=== PATIENT | male | born 1965 | race Caucasian/White ===

== ENCOUNTER 2020-10-03 15:36 | Inpatient (IN) | payer MEDICAID ==
[~2020-10-03] VITALS: Ht 182.9 cm; Wt 118.4 kg
[2020-10-03] VITALS (14 sets, daily range): BP systolic 104–169; BP diastolic 64–99
--- NOTE | ~2020-10-03 | CON ---
[address] [address] CONSULTATION Name: ELISARENETTA JR Room: [address] IN M.R.#: [id number] Admission: 10/03/20 Attend Phys: Markos Smith Discharge: Date of : 63 Report #: [id number] THIS REPORT FOR: cc: Choco Paul John E. DO ~ Choco Dyson MD [facility] DATE OF SERVICE: 10/03/2020 ADDENDUM The patient is a 55-year-old male, who was transferred to [facility] from our office in the context of chest pain that was nitrate responsive in the office and subsequently in the ER with anterolateral ST segment depression. There is a history of remote PCI in 2008 of multivessel nature. He has a number of risk factors for coronary artery disease. In that context, he underwent urgent cardiac catheterization, which revealed subtotal occlusion of the distal circumflex prior to several small marginal branches. He also had sequential 50% proximal and 80-90% followed by 90% mid LAD stenosis. There was modest diffuse right coronary artery disease. In this setting, I performed PCI in the distal circumflex initially, deploying 2 drug-eluting stents in the distal circumflex with 0% residual narrowing and DE 3 flow to the distal vessel. I placed 2 stents at the sites of 80% and 90% mid LAD stenosis with 0 and 10% residual narrowing following stent deployment and DE 3 flow of the distal vessel. The patient did well post-procedurally. He was loaded with dual antiplatelet therapy including aspirin and prasugrel and then transferred to the telemetry unit in stable condition. By: 1908 30Choco Dyson MD, FACC /nt
[2020-10-03] MEDS ORDERED: LISINOPRIL20 MG PO (15:56)
[2020-10-03] MEDS ORDERED: NORCO 10-325 T1 EACH PO (15:56)
[2020-10-03] MEDS ORDERED: ZOLADEX3.6 MG/1 S SUBQ (15:57)
[2020-10-03 15:58] LABS: ABSOLUTE BASOPHILS 0.1 thou/uL (0.0-0.2); ABSOLUTE EOSINOPHILS 0.3 thou/uL (0.0-0.7); ABSOLUTE LYMPHOCYTES 2.9 thou/uL (0.8-5.3); ABSOLUTE MONOCYTES 0.7 thou/uL (0.0-1.2); ABSOLUTE NEUTROPHILS 6.5 thou/uL (1.6-8.1); BASOPHILS 0.6 %; EOSINOPHILS 2.4 %; HEMATOCRIT 42.2 % (42.0-52.0); HEMOGLOBIN 14.6 gm/dL (14.0-18.0); LYMPHOCYTES 28.1 %; MCH 30.5 pg (26.0-34.0); MCHC 34.7 g/dL (28.0-37.0); MCV 87.9 fL (80.0-100.0); MONOCYTES 6.9 %; MPV 7.3 fl. (7.2-11.1); NUCLEATED RBCS 0 /100WBC; PLATELET COUNT* 286 thou/uL (150-400); RDW-CV 13.8 % (10.5-14.5); WBC 10.4 thou/uL (4.0-11.0)
[2020-10-03 16:14] LABS: APTT 24.1 Seconds (25.0-31.3); CALCIUM 9.8 mg/dL (8.5-10.1); CREATININE 1.4 mg/dL (0.6-1.3); POTASSIUM 4.8 mmol/L (3.5-5.1); PROTIME 10.4 Seconds (9.20-11.50)
[2020-10-03 16:22] LABS: CHOLESTEROL 205 mg/dL (<200); HDL CHOLESTEROL 33 mg/dL (>40); TC:HDL 6.2 Ratio (Not establshd); TRIGLYCERIDE 413 mg/dL (<150); VLDL 83 mg/dL (<40)
[2020-10-03 16:28] LABS: ALBUMIN 3.5 g/dL (3.4-5.0); CK-MB MASS 1.2 ng/mL (<0.5-3.6); MAGNESIUM 1.6 mg/dL (1.8-2.4); TOTAL BILIRUBIN 0.2 mg/dL (<0.1-1.0); TOTAL PROTEIN 7.4 g/dL (6.4-8.2)
[2020-10-03 16:35] LABS: SERUM ASSESSMENT Clear
--- NOTE | 2020-10-03 21:15 | NUR ---
NURSING SAFETY EQUIPMENT TESTING SPECIALIST CALLED TO ROOM 212; PT BELLIGERENT, STATING "I AM GOING TO LEAVE WHEN MY 6 HOURS IS UP. THE DOCTOR SAID I WOULD BE FINE"; PT REFUSING TO GIVE UP HIS HOME NORCO; STATING "YOU ARE STEALING IT" NURSE ATTEMPTED TO EXPLAIN THE POLICY TO THE PATIENT, AND INFORMED HIM THAT PTS ARE NOT ALLOWED TO KEEP THEIR MEDICATIONS AT THE BEDSIDE; UNABLE TO REDIRECT, REASSURE; PT SPOKE WITH HIS SPOUSE; PT WAS YELLING AT HIS OVER THE PHONE, DEMANDING HER TO COME PICK HIM UP, AND STATING WE ARE STEALING HIS PILLS; SPOKE WITH ZAHIDA [phone]. SHE REPORTED THAT PATIENT IS BEING EXTREMELY MEAN AND DIFFICULT; REPORTED THAT HE SAID HE HAD SOME ANXIETY; ALSO STRESSED THAT HE NEEDS TO STAY HERE AND IS IN NO CONDITION TO LEAVE; THIS NURSE REASSURED THAT WE WILL CONTACT THE DR REGARDING THE PTS MEDICATION AND NEED TO GET HOME MEDS APPROVED AND ASK FOR ANXIETY MEDICATION.
--- NOTE | 2020-10-03 21:36 | NUR ---
PT CONTINUES TO REFUSE TO LISTEN; PT HAS BEEN DIRECTED TO KEEP HIS R LEG STRAIT; PT WITH COMPLAINTS OF BACK PAIN AND STATED "I CANNOT DO THAT"; NURSE OFFERED TO PLACE PILLOW UNDER BACK AND MAINTAIN R LEG STRAIT; PT REFUSED; WILL TO MONITOR.
[2020-10-04] VITALS: BP 123/82
[2020-10-04 04:00] VITALS: BP 125/72
[2020-10-04 04:27] LABS: HEMATOCRIT 39.5 % (42.0-52.0); HEMOGLOBIN 13.7 gm/dL (14.0-18.0); MCH 29.9 pg (26.0-34.0); MCHC 34.6 g/dL (28.0-37.0); MCV 86.6 fL (80.0-100.0); MPV 7.6 fl. (7.2-11.1); RBC 4.56 mil/uL (4.50-6.00); RDW-CV 13.4 % (10.5-14.5); WBC 7.6 thou/uL (4.0-11.0)
[2020-10-04 05:04] LABS: ALBUMIN 3.3 g/dL (3.4-5.0); CALCIUM 8.9 mg/dL (8.5-10.1); CREATININE 0.9 mg/dL (0.6-1.3); TOTAL BILIRUBIN 0.3 mg/dL (<0.1-1.0); TOTAL PROTEIN 6.6 g/dL (6.4-8.2)
[2020-10-04 05:09] LABS: POTASSIUM 3.8 mmol/L (3.5-5.1)
--- NOTE | 2020-10-04 05:36 | NUR ---
RECEIVED REPORT FROM DIRECTOR OF GUIDANCE IN [employer] RN. PT TRANSFERRED TO 212. PT A&OX4. VSS. STRIPE MARKER IN PLACE. ADMISSION HISTORY & PHYSICAL ASSESSMENT COMPLETED AND CHARTED. PT ON RA. PT TRACING SR/PVC ON TELE. POST CATH SITE TO RIGHT GROIN WITH MINIMAL DRIED BLOOD. NO TENDERNESS NOTED. BRUISING NOTED. PT COMPLAINED OF BACK PAIN-MED GIVEN PER MAR. PT CLAIMED THAT HE USUALLY TAKES NORCO 10/325 MG AT HOME. OBSERVED HOME MEDICATION (NORCO & ASPIRIN) AT AND TRIED TO EDUCATE PT REGARDING MEDICATION PROTOCOL BUT PT STILL REFUSED TO GIVE UP MEDICATION ESPECIALLY NORCO AND TELLING US THAT WE ARE STEALING IT. PT WANTS TO GO HOME AFTER 6 HOURS POST PROCEDURE SO HE CAN HAVE HIS PAIN PILL. PT STATED HE DOES NOT TRUST OUR BRAND OF NORCO AND WANTS HIS OWN PAIN PILL. CALLED DOCTOR OF PODIATRIC MEDICINE. HARRIS PAZ TALKED TO PT & . PAGED PROVIDER CATTLE DIPPER WITH NEW ORDERS. PT WONT KEEP HIS RIGHT LEG STRAIGHT TOO.
[2020-10-04 07:30] VITALS: BP 143/81
[2020-10-04] MEDS ORDERED: EFFIENT10 MG PO (08:38)
[2020-10-04] MEDS ORDERED: ASPIR 8181 MG PO (08:38)
[2020-10-04] MEDS ORDERED: LIPITOR 40 MG T40 M1 PO (08:38)
[2020-10-04] MEDS ORDERED: NITROGLYCERIN0.4 MG SUBLING (08:38)
--- NOTE | 2020-10-04 09:52 | CARD ---
[address] [address] CARDIAC CATH REPORT Name: RENETTA PÉREZ JR Room: [address] IN [facility]#: [id number] Admission: 10/03/20 Attend Phys: Markos Smith Discharge: Date of : 63 Report #: [id number] THIS REPORT FOR: cc: Choco Paul John E. DO ~ Choco Dyson MD [facility] APPROVED REPORT Study performed: 10/03/2020 16:39:53 Patient Details Patient Status: ED Room #: The patient is a 55 year-old male Event Personnel Choco Dyson Wire Mesh Gate Assembler, Hortencia Hicks RN Record Changer, Summer Flores RN Monitor, Enrique Sánchez Scrub Procedures Performed Art Access - R femoral artery* Left Heart Cath w/or w/o Coronaries LHC BRANDEE Place w/wo Plasty Single LAD BRANDEE Place w/wo Plasty Single CIRC Hemostasis w/ Angioseal Indication Non-STEMI Risk Factors Hypercholesterolemia, Hypertension Previous Procedures/Diagnoses Previous PCI Admission/Lab Medications/Medications given during procedure Aspirin, Aspirin PO 162 mg, Effient PO 60 mg, Angiomax IV 17 ml Procedure Narrative The patient was brought urgently to the Cardiac Catheterization Laboratory and was prepped and draped in a sterile manner. The right femoral was infiltrated with 2% Lidocaine subcutaneous anesthesia. A [place] 6 FR sheath was inserted into the right femoral artery. Coronary angiography was performed using coronary diagnostic catheters. The right coronary system was accessed and [place] [address] CARDIAC CATH REPORT Name: RENETTA PÉREZ JR Room: [address]#: [id number] Admission: 10/03/20 Attend Phys: Markos Smith Discharge: Date of : 63 Report #: [id number] a Diagnostic JR4 catheter. The left coronary system was accessed and visualized with a Diagnostic JL4 catheter. The left ventricle was accessed and visualized with a Diagnostic PIGTAIL catheter. Left ventricular/Aortic Valve gradient assessed via catheter pullback. Closure device was deployed with a 6 Fr Angioseal. The patient tolerated the procedure well and there were no complications associated with the procedure. There was no hematoma. Intraoperative Conscious Sedation Sedation start time: 5:09 PM Case end Time: 6:48 PM Fentanyl 75 mcg Versed 4 mg Fluoro Time: 29.6 minutes Dose: DAP 213189 cGycm2 3398 mGy Contrast Type and Amount: Visipaque 500 ml Diagnostic Cath Left Main 0% narrowing LAD 75% proximal stenosis of the level of the first septal sail repair person with 50% proximal and 90% mid first diagonal stenosis Circumflex 30% proximal with 50% mid vessel narrowing and 95 % distal stenosis with DE I flow to the distal circumflex Right Coronary Dominant vessel with 40% proximal and 50% tubular distal narrowing Left Ventriculography The left ventricle is normal in size with normal contractility. The left ventricular ejection fraction is estimated to be 65%. Left ventricular wall motion abnormalities are not present. There is no mitral insufficiency. Hemodynamics The aortic pressure is 110/64 mmHg with a mean of 84 mmHg. The left ventricular pressure is 120/4 mmHg with a mean of mmHg. The left ventricular end diastolic pressure is 7 mmHg. There was no gradient across the aortic valve upon pullback. PCI Technique Lesion Anticoagulation was achieved with Angiomax. Percutaneous coronary intervention was performed on the distal circumflex artery segment. The lesion stenosis prior to intervention was 95% with DE 1 flow. A 6F XB LAD 3.5 Guide Catheter was used to engage the ostium. A IG: ProZAF Energy SystemsFlex 180CM Interventional Guidewire was used to [place] [address] CARDIAC CATH REPORT Name: RENETTA PÉREZ JR Room: [address]#: [id number] Admission: 10/03/20 Attend Phys: Markos Smith Discharge: Date of : 63 Report #: [id number] lesion. BALLOON DILATION A Balloon catheter Mini Trek RX 1.5 X 8 was inserted and inflated up to 14.00atm for 12seconds. Additional Inflation: 17.00atm for 12seconds. A balloon catheter 2.0x8 Mini Trek was inserted and inflated up to 6 chava for 8 sec. Additional Inflation:8 chava for 10 sec; 8 chava for 9 sec;10 chava for 11 sec respectively. STENT DEPLOYMENT A drug-eluting stent Magnolia RX Stent 2.0X15mm was inserted and inflated up to 7.00atm for 15seconds. Additional Inflation: 8.00atm for 7seconds. An additional drug eluting stent Magnolia RX Stent 2.0x8 mm was inserted and inflated fpr 12 chava for 10 sec; Additional inflation: 11 chava for 11 sec. Final angiography reveals 0 % stenosis with DE 3 flow. PCI Technique Lesion 2 Percutaneous Coronary Intervention was performed on the mid portion of the prominent first diagonal branch of the LAD. The lesion stenosis prior to intervention was 90% with DE 3 flow. A 6F XB LAD 3.5 Guide Catheter was used to engage the ostium. A IG: SyncplicitywaterFlex 180CM Interventional Guidewire was used to cross the lesion. Balloon Dilation A Balloon catheter Mini Trek RX 2.0 X 8 was inserted and inflated up to 12.00atm for 11seconds. Stent Deployment A drug-eluting stent Magnolia RX Stent 2.08O26xc, was inserted and inflated up to 10.00atm for 12seconds. Additional Inflation: 12.00atm for 8seconds. A second drug-eluting stent, 2.0 x 8 mm Kevin was deployed to a peak pressure of 9 chava just distal to the first 2.25 x 12 mm stent with a good angiographic result and 0% residual stenosis Final angiography reveals 0 % stenosis with DE 3 flow. Conclusion 1. Significant multivessel coronary artery disease characterized by the following: A 75% proximal LAD stenosis with 90% stenosis in the midportion of [address] [address] CARDIAC CATH REPORT Name: RENETTA PÉREZ Room: [address] IN M.R.#: [id number] Admission: 10/03/20 Attend Phys: Markos Smith Discharge: Date of : 63 Report #: [id number] the prominent first diagonal branch of the LAD B prominent though nondominant circumflex with 30% proximal 50% mid and 95% distal stenosis with DE I flow to the most distal portion of the circumflex C dominant right coronary artery with 50% proximal and 50% tubular distal narrowing 2. Normal left ventricular systolic function, estimated ejection fraction being 65% 3. Normal left-sided hemodynamic study 4. Successful PCI with deployment of sequential drug-eluting stents at the site of 95% distal circumflex stenosis with 0% residual narrowing DE-3 flow to the distal vessel and no residual thrombus 5. Successful PCI with deployment of drug-eluting stents at the site of 90% stenosis in the midportion of the prominent first diagonal branch of the LAD with 0 residual narrowing and DE-3 flow to the distal vessel Recommendations Cardiac Risk Reduction Program Aggressive Medical Therapy Medications Administered Aspirin (any) Prasugrel Diagnostic Cath Approved by: Choco Dyson MD Date/Time: 10/04/2020 09:41:52 <ELECTRONICALLY SIGNED> By: Choco Dyson MD, [facility] 10/04/2051 0 Choco Dyson MD, FAC /INF
--- NOTE | 2020-10-04 09:52 | NUR ---
PATIENT GUCCI THIS AM. REFUSING CARDIAC MEDICATIONS UNLESS ABLE TO TAKE AN EXTRA DOSE OF HIS PAIN MEDICATION. DR SARKAR IN TO SEE THE PATIENT THIS AM, HE IS OK WITH AN EXTRA DOSE NOW AND PLANNING FOR DC TO HOME TODAY. PATIENTS FATHER N LAW COMING TO PICK THE PATIENT UP PER THE PATIENTS . HE IS UP AD SARAH IN ROOM. GAIT IS STEADY. SITTING IN RECLINER THIS AM. NO COMPLAINTS OF CHEST PAIN, JUST C/O HIS CHRONIC BACK PAIN THIS AM.
[2020-10-04 09:55] VITALS: BP 125/72
[2020-10-04 09:58] VITALS: BP 125/72
--- NOTE | 2020-10-04 10:05 | EKG ---
[place] [address] ELECTROCARDIOGRAM REPORT Name: RENETTA PÉREZ JR Room: [address] ADM IN .R.#: [id number] Admission: 10/03/20 Attend Phys: Luke Carey Discharge: Date of : 63 Date of Service: 10/03/20 1542 Report #: [id number] THIS REPORT FOR: //name// [facility] ED Test Date: 2020-10-03 Test Time: 15:42:00 Pat Name: RENETTA PÉREZ Department: Room: [facility] Gender: M Motorcycle Service Technician: [place]EX[place] : 1965 Requested By: Lenard Pozo Order Number: [id number] MD: Choco Dyson Measurements Intervals [place] Rate: 81 P: 67 ME: 130 QRS: 61 QRSD: 87 T: 69 QT: 361 QTc: 419 Interpretive Statements Sinus rhythm Borderline ST depression, anterolateral leads consider ischemia No previous ECG available for comparison Electronically Signed On 10-04-2020 10:05:39 BRIDGE MECHANIC by Choco Dyson [email or web address] <ELECTRONICALLY SIGNED> By: Choco Dyson MD, FACC 10/04/20 1005 1542 1542 Choco Dyson MD, [facility] /EPI
--- NOTE | 2020-10-04 10:15 | EKG ---
[place] [address] ELECTROCARDIOGRAM REPORT Name: RENETTA PÉREZ JR Room: [address] ADM IN .R.#: [id number] Admission: 10/03/20 Attend Phys: Luke Carey Discharge: Date of : 63 Date of Service: 10/04/20 0836 Report #: [id number] THIS REPORT FOR: //name// [facility] Test Date: 2020-10-04 Test Time: 08:36:18 Pat Name: RENETTA ELISA Department: Room: [facility] Gender: M Human Factors Specialist: : 1965 Requested By: Choco Dyson Order Number: [id number] Reading MD: Choco Dyson Measurements Intervals [place] Rate: 65 P: 55 MS: 135 QRS: 32 QRSD: 91 T: 31 QT: 411 QTc: 428 Interpretive Statements Sinus rhythm Minimal ST depression, lateral leads Baseline wander in lead(s) V3 Compared to ECG 10/03/2020 15:42:[address] segment depression has diminished Electronically Signed On 10-04-2020 10:15:33 ELECTRONIC DEVICE MONITOR by Choco Dyson [email or web address] <ELECTRONICALLY SIGNED> By: Choco Dyson MD, [facility] 10/04/20 1015 0836 0836 Choco Dyson MD, [facility] /EPI
--- NOTE | 2020-10-04 11:16 | NUR ---
PATIENTS HOME MEDICATION RETURNED TO PATIENT. PATIENT UPSET STATING HE HAD 20 PILLS IN HIS CONTAINER BEFORE LOCKING UP WITH PHARMACY. 17.5 PILLS WERE COUNTED AND ACCOUNTED FOR PER PHARMACY'S DOCUMENTATION ON PAPERWORK WHERE PATIENT SIGNED STATING HE AGREED. I REMINDED PATIENT HE HAD HIS PILLS IN HIS POSSESSION PRIOR TO BEING LOCKED UP AND DOCUMENTED AND HE WAS TAKING THEM LIBERALLY IN HIS ROOM. HE STATED HE REMEMBERED BUT DID NOT WANT TO PERSUE ANY COMPLAINT AT THIS TIME. IV DISCONTINUED. VALET MANAGER REMOVED AND RETURNED TO DESK. HE IS LEAVING AMBULATORY PER HIS REQUEST ACCOMPANIED BY NURSING STAFF AND HIS FATHER N LAW. NO QUESTIONS OR CONCERNS AT THIS TIME.
== END 2020-10-04 11:20 | disposition home or self-care (01) | DRG 247 ==
LOC: M.ERS 15:36 → M.TBA-ER 16:28 → M.2W 18:57
PROVIDERS: Family Medicine; Internal Medicine; Registered Nurse; ADMIT Internal Medicine; ATTEND Internal Medicine
PROC: 4A023N7 Measurement of Cardiac Sampling and Pressure, Left Heart, Percutaneous Approach (ICD-10-PCS; principal; 2020-10-03)
PROC: B215YZZ Fluoroscopy of Left Heart using Other Contrast (ICD-10-PCS; principal; 2020-10-03)
PROC: 027135Z Dilation of Coronary Artery, Two Arteries with Two Drug-eluting Intraluminal Devices, Percutaneous Approach (ICD-10-PCS; principal; 2020-10-03)
PROC: B211YZZ Fluoroscopy of Multiple Coronary Arteries using Other Contrast (ICD-10-PCS; principal; 2020-10-03)
DX: I21.4 Non-ST elevation (NSTEMI) myocardial infarction (principal); I25.110 Atherosclerotic heart disease of native coronary artery with unstable angina pectoris; E78.5 Hyperlipidemia, unspecified; I10 Essential (primary) hypertension; F17.210 Nicotine dependence, cigarettes, uncomplicated; G89.29 Other chronic pain; M54.9 Dorsalgia, unspecified; Z20.828 Contact with and (suspected) exposure to other viral communicable diseases; I25.2 Old myocardial infarction; Z95.5 Presence of coronary angioplasty implant and graft; Z85.46 Personal history of malignant neoplasm of prostate; Z71.6 Tobacco abuse counseling; Z79.82 Long term (current) use of aspirin; Z79.899 Other long term (current) drug therapy

== ENCOUNTER 2020-11-14 08:49 | Observation (INO) | payer MEDICAID ==
[2020-11-14] VITALS (20 sets, daily range): BP systolic 113–163; BP diastolic 56–97
[~2020-11-14] VITALS: Ht 182.9 cm; Wt 113.4 kg
--- NOTE | ~2020-11-14 | H ---
[address] [address] HISTORY AND PHYSICAL Name: RENETTA PÉREZ JR Room: [address] Anatoly Anderson#: [id number] Admission: 11/14/20 Attend Phys: Choco Dyson MD, Discharge: 11/15/20 Date of : 63 Report #: [id number] THIS REPORT FOR: cc: Choco Paul John E. DO ~ [facility],Medical Records Staff Please refer to the History and Physical performed in the physician's office. By: [id number] Records Staff [facility] /ALYCE
[~2020-11-14 08:49] MED LIST: ASPIR 8181 MG PO; EFFIENT10 MG PO; LIPITOR 40 MG T40 M1 PO; LISINOPRIL20 MG PO; NITROGLYCERIN0.4 MG SUBLING; NORCO 10-325 T1 EACH PO; ZOLADEX10.8 MG SUBQ; ZOLADEX3.6 MG/1 S SUBQ
[2020-11-14] MEDS ORDERED: LIPITOR40 MG PO (09:26)
[2020-11-14] MEDS ORDERED: TOPROL XL25 MG PO (09:27)
[2020-11-14 09:29] LABS: HEMATOCRIT 40.6 % (42.0-52.0); HEMOGLOBIN 13.4 gm/dL (14.0-18.0); MCH 29.3 pg (26.0-34.0); MCHC 32.9 g/dL (28.0-37.0); MPV 7.2 fl. (7.2-11.1); RBC 4.56 mil/uL (4.50-6.00); RDW-CV 13.3 % (10.5-14.5)
[2020-11-14 09:39] LABS: ANION GAP 11 mmol/L (7-16); BUN 15 mg/dL (7-18); CALCIUM 8.8 mg/dL (8.5-10.1); CHLORIDE 102 mmol/L (98-107); CO2 24 mmol/L (21-32); CREATININE 1.1 mg/dL (0.6-1.3); GLUCOSE 116 mg/dL (70-99); POTASSIUM 4.2 mmol/L (3.5-5.1); SODIUM 137 mmol/L (136-145)
[2020-11-14 09:43] LABS: PROTIME 10.4 Seconds (9.20-11.50)
[2020-11-14 09:44] LABS: ALBUMIN 3.3 g/dL (3.4-5.0); ALKALINE PHOSPHATASE 73 U/L (46-116); CHOLESTEROL 142 mg/dL (<200); HDL CHOLESTEROL 36 mg/dL (>40); LDL CHOLESTEROL 67 mg/dL (<100); SERUM ASSESSMENT Clear; SGOT 23 U/L (15-37); SGPT 42 U/L (30-65); TC:HDL 3.9 Ratio (Not establshd); TOTAL BILIRUBIN 0.2 mg/dL (<0.1-1.0); TOTAL PROTEIN 7.4 g/dL (6.4-8.2); TRIGLYCERIDE 197 mg/dL (<150); VLDL 39 mg/dL (<40)
--- NOTE | 2020-11-14 17:13 | EKG ---
[place] [address] ELECTROCARDIOGRAM REPORT Name: RENETTA PÉREZ JR Room: [address] M.R.#: [id number] Admission: 11/14/20 Attend Phys: Erlinda Xiao Discharge: Date of : 63 Date of Service: 11/14/20 1033 Report #: [id number] THIS REPORT FOR: //name// [facility] Test Date: 2020-11-14 Test Time: 10:33:09 Pat Name: RENETTA PÉREZ Department: Room: [facility] Gender: M Computer Scientist: : 1965 Requested By: Choco Dyson Order Number: [id number] Harry MD: Choco Dyson Measurements Intervals [place] Rate: 62 P: 65 VT: 135 QRS: 57 QRSD: 90 T: 37 QT: 416 QTc: 423 Interpretive Statements Sinus rhythm Abnormal R-wave progression, early transition Compared to ECG 10/04/2020 08:36:18 ST (T wave) deviation no longer present Electronically Signed On 11-14-2020 17:12:57 RIVERBOAT CAPTAIN by Choco Dyson [email or web address] <ELECTRONICALLY SIGNED> By: Choco Dyson MD, [facility] 11/14/20 1712 1033 1033 Choco Dyson MD, [facility] /EPI
--- NOTE | 2020-11-14 17:15 | EKG ---
[place] [address] ELECTROCARDIOGRAM REPORT Name: RENETTA PÉREZ JR Room: [address] M.R.#: [id number] Admission: 11/14/20 Attend Phys: Erlinda Xiao Discharge: Date of : 63 Date of Service: 11/14/20 1320 Report #: [id number] THIS REPORT FOR: //name// [facility] Test Date: 2020-11-14 Test Time: 13:20:59 Pat Name: RENETTA MARINOON Department: Room: [facility] Gender: M Mill Helper: : 1965 Requested By: Choco Dyson Order Number: [id number] Reading MD: Choco Dyson Measurements Intervals [place] Rate: 61 P: 71 [place]: 143 QRS: 61 QRSD: 92 T: 50 QT: 417 QTc: 420 Interpretive Statements Sinus rhythm Abnormal R-wave progression, early transition Minimal ST elevation, anterior leads Compared to ECG 11/14/2020 10:33:09 ST (T wave) deviation now present Electronically Signed On 11-14-2020 17:14:55 STOPPER MAKER by Choco Dyson [email or web address] <ELECTRONICALLY SIGNED> By: Choco Dyson MD, [facility] 11/14/20 1714 1320 1320 Choco Dyson MD, [facility] /EPI
[2020-11-15] VITALS: BP 147/87
[2020-11-15 04:00] VITALS: BP 150/90
[2020-11-15 04:35] LABS: HEMATOCRIT 40.4 % (42.0-52.0); HEMOGLOBIN 13.4 gm/dL (14.0-18.0); MCHC 33.2 g/dL (28.0-37.0); MCV 87.3 fL (80.0-100.0); MPV 7.5 fl. (7.2-11.1); RBC 4.63 mil/uL (4.50-6.00); RDW-CV 13.3 % (10.5-14.5); WBC 8.5 thou/uL (4.0-11.0)
[2020-11-15 05:39] LABS: ALBUMIN 3.2 g/dL (3.4-5.0); ALKALINE PHOSPHATASE 71 U/L (46-116); ANION GAP 6 mmol/L (7-16); BUN 14 mg/dL (7-18); CALCIUM 9.4 mg/dL (8.5-10.1); CHLORIDE 107 mmol/L (98-107); CO2 30 mmol/L (21-32); GLUCOSE 95 mg/dL (70-99); SGOT 19 U/L (15-37); SGPT 42 U/L (30-65); SODIUM 143 mmol/L (136-145); TOTAL BILIRUBIN 0.3 mg/dL (<0.1-1.0); TOTAL PROTEIN 7.4 g/dL (6.4-8.2); TROPONIN-I LEVEL <0.06 ng/mL (<0.06)
[2020-11-15 05:42] LABS: POTASSIUM 5.2 mmol/L (3.5-5.1)
--- NOTE | 2020-11-15 06:02 | NUR ---
ASSUMED PT'S CARE THIS PM SHIFT. ALERT AND ORIENTED. CALM AND PLEASANT THIS SHIFT. DECLINED IVF, OTHERWISE COOPERATIVE WITH CARE. PT SLEPT WELL THIS SHIFT. PRN PAIN MED GIVEN FOR RT GROIN PAIN, POST CATH. CALL LIGHT WITHIN REACH. WILL CONTINUE TO MONITOR.
--- NOTE | 2020-11-15 10:21 | NUR ---
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 JOSE MCKINNON. PT UNDERSTANDS ALL FOLLOW UP ORDERS. WILL DISCAHRGE TO HOME.
[2020-11-15 10:22] VITALS: BP 150/90
[2020-11-15 10:27] VITALS: BP 110/56
--- NOTE | 2020-11-15 10:28 | D ---
[address] [address] DISCHARGE SUMMARY Name: RENETTA PÉREZ Room: [address] M.R.#: [id number] Admission: 11/14/20 Attend Phys: Choco Dyson MD, Discharge: Date of : 63 Report #: [id number] THIS REPORT FOR: cc: Choco Paul John E. DO ~ Choco Dyson MD [facility] DATE OF SERVICE: 11/15/2020 FINAL DISCHARGE DIAGNOSES: 1. Unstable angina. 2. Status post recent myocardial infarction. 3. Status post prior percutaneous coronary intervention to diagonal and the distal circumflex and more recent percutaneous coronary intervention to the proximal-mid left anterior descending on 11/14/2020. 4. Hypertension. 5. Tobacco use. 6. History of prostate cancer. 7. Exogenous obesity. 8. Hyperlipidemia. PROCEDURES: 11/14/2020 -- left heart catheterization, selective coronary arteriography and percutaneous coronary intervention with deployment of drug-eluting stent at the site of 90% proximal-mid LAD stenosis. HISTORY AND HOSPITAL COURSE: The patient is a 55-year-old male with hypertension, tobacco use and coronary artery disease, status post non-STEMI approximately one month ago interrupted by stenting of the distal circumflex at the site of subtotal occlusion with stenting of the first diagonal as well and LAD lesion, which was not approached in the acute setting. He continued to have some discomfort, though not as severe as that is at presentation with acute coronary syndrome. In this context, he underwent recatheterization on 11/14/2020, which revealed widely patent distal circumflex and first diagonal stents. I deployed one 2.75 x 8 Kevin drug-eluting stent at the site of 90% proximal-mid LAD stenosis with 10% residual narrowing and DE 3 flow of the distal vessel. Troponin did not rise above the reference range. LABORATORY DATA: Additional lab on 11/15 revealed a sodium 143, potassium 5.2, BUN 14 and creatinine 1.0. Hemoglobin 13.4 and white blood cell count 8500 with 281,000 platelets. There was good hemostasis at the right femoral site of catheterization. DISCHARGE MEDICATIONS: He was discharged to home on the following medications: Lisinopril 20 mg daily, hydrocodone/acetaminophen 10/325 every 6-8 [place] [address] DISCHARGE SUMMARY Name: RENETTA PÉREZ JR [address] [id number] Admission: 11/14/20 Attend Phys: Choco Dyson MD, Discharge: Date of : 63 Report #: [id number] for musculoskeletal discomfort, prasugrel or Effient 10 mg daily with 30 mg dose given periprocedurally, Zoladex implant 10.8 mg subcutaneously monthly, atorvastatin 40 mg daily, metoprolol succinate 25 mg daily as well as aspirin 81 and p.r.n. sublingual nitroglycerin. The patient is scheduled to return to see Dr. Morelos in followup on 11/29/2020 at 1000 hours. Therefore, the patient is discharged to home in stable condition on the aforementioned medications with followup as described above. <ELECTRONICALLY SIGNED> By: Choco Dyson MD, [facility] 11/15/20 1028 0955 1007Jokaren Dyson MD, FACC /nt
[2020-11-15 10:47] VITALS: BP 158/84
--- NOTE | 2020-11-15 12:47 | NUR ---
Pt had heart cath yesterday, dc to home today with no needs.
--- NOTE | 2020-11-16 14:07 | EKG ---
[place] [address] ELECTROCARDIOGRAM REPORT Name: RENETTA PÉREZ JR Room: [address] M.#: [id number] Admission: 11/14/20 Attend Phys: Erlinda Xiao Discharge: 11/15/20 Date of : 63 Date of Service: 11/15/20 0951 Report #: [id number] THIS REPORT FOR: //name// [facility] Test Date: 2020-11-15 Test Time: 09:51:17 Pat Name: RENETTA PÉREZ Department: Room: [facility] Gender: M Farmworker: : 1965 Requested By: Choco Dyson Order Number: [id number] Harry MD: Choco Dyson Measurements Intervals [place] Rate: 73 P: 65 LA: 133 QRS: 61 QRSD: 90 T: 44 QT: 395 QTc: 436 Interpretive Statements Sinus rhythm Compared to ECG 11/14/2020 13:20:59 ST (T wave) deviation no longer present Electronically Signed On 11-16-2020 14:06:46 MACHINE CARTON MARKER by Choco Dyson [email or web address] <ELECTRONICALLY SIGNED> By: Choco Dyson MD, [facility] 11/16/20 1406 0951 0951 Choco Dyson MD, [facility] /EPI
--- NOTE | 2020-11-16 14:34 | CARD ---
[address] [address] CARDIAC CATH REPORT Name: RENETTA PÉREZ Room: [address] Anatoly M.R.#: [id number] Admission: 11/14/20 Attend Phys: Choco Dyson MD, Discharge: 11/15/20 Date of : 63 Report #: [id number] THIS REPORT FOR: cc: Choco Paul John E. DO ~ Choco Dyson MD [facility] APPROVED REPORT Study performed: 11/14/2020 10:56:23 Patient Details Patient Status: Out-Patient Room #: The patient is a 55 year-old male Event Personnel Choco Dyson Green Building Engineer, Demetra Malik RN RN, Gianluca Oliveira RTR Monitor, Wilbert Juares Scrub, Judy Jennings RTR Monitor Procedures Performed Art Access - R femoral artery, Left Heart Cath w/or w/o Coronaries LHC , BRANDEE Place w/wo Plasty Single LAD , Hemostasis w/ Angioseal Indication Unstable angina Risk Factors Hypercholesterolemia, Hypertension Previous Procedures/Diagnoses Previous PCI, Previous NH Admission/Lab Medications/Medications given during procedure Angiomax IV 17 ml, Angiomax IV 39.76 ml per hr, Angiomax IV 3 ml, Effient PO 30 mg, Aspirin PO 162 mg Procedure Narrative The patient was brought electively to the Cardiac Catheterization Laboratory and was prepped and draped in a sterile manner. The right femoral was infiltrated with 1% Lidocaine subcutaneous anesthesia. A 6F [place] sheath was inserted into the right femoral artery. Coronary angiography was performed using coronary diagnostic catheters. The right coronary system was [place] [address] CARDIAC CATH REPORT Name: RENETTA PÉREZ JR Room: [address] Anatoly Anderson#: [id number] Admission: 11/14/20 Attend Phys: Choco Dyson MD, Discharge: 11/15/20 Date of : 63 Report #: [id number] a 6F AR1 MOD catheter. The left coronary system was accessed and visualized with a 6F JL4 catheter. The left ventricle was accessed and visualized with a 6F Pigtail catheter. Left ventricular/Aortic Valve gradient assessed via catheter pullback. Pre-demployment femoral angiogram was performed . Closure device was deployed with a 6 Fr Angioseal STS. The patient tolerated the procedure well and there were no complications associated with the procedure. There was no hematoma. Intraoperative Conscious Sedation Sedation start time: 10:57 Case end Time: 11:54 Fentanyl 50 mcg Versed 3 mg Fluoro Time: 9.5 minutes Dose: DAP 815913 cGycm2 1792 mGy Contrast Type and Amount: Visipaque 260 ml Diagnostic Cath Left Main 0% narrowing LAD 30% ostial narrowing followed by 80% stenosis at the level of the first septal perfect binder setter with 50% proximal first diagonal narrowing followed by widely patent mid first diagonal stent Circumflex 30% proximal narrowing Right Coronary Moderate-sized dominant vessel with 40% proximal and distal narrowings Left Ventriculography Left Ventriculography was not performed. Hemodynamics The aortic pressure is 109/69 mmHg with a mean of 86 mmHg. The left ventricular pressure is 108/9 mmHg with a mean of mmHg. The left ventricular end diastolic pressure is 12 mmHg. There was no gradient across the aortic valve upon pullback. PCI Technique Lesion Anticoagulation was achieved with Angiomax. Patient was preloaded with Angiomax IV 17 ml. Percutaneous coronary intervention was performed on the proximal left anterior descending artery segment. The lesion stenosis prior to intervention was 80% with DE 3 flow. A 6FR XB 3.5 100CM Guide Catheter was used to engage the lm ostium. A ProwaterFlex 180CM Interventional Guidewire was used [place] [address] CARDIAC CATH REPORT Name: RENETTA PÉREZ JR Room: [address] [id number] Admission: 11/14/20 Attend Phys: Choco Dyson MD, Discharge: 11/15/20 Date of : 63 Report #: [id number] BALLOON DILATION A Balloon catheter NC Trek RX 2.5 X 8 was inserted and inflated up to 18.00atm for 14seconds. Additional Inflation: 20.00atm for 12seconds. A 2nd balloon catheter NC Trek RX 2.75 x 8 was inserted and inflated up to 16 chava for 7 seconds; 18 chava for 7 seconds. STENT DEPLOYMENT A drug-eluting stent Kevin RX Stent 2.75X8mm was inserted and inflated up to 12.00atm for 8seconds. Additional Inflation: 15.00atm for 8seconds. Final angiography reveals 10 % stenosis with DE 3 flow. Conclusion 1. Significant coronary artery disease characterized by the following: A 30% ostial LAD narrowing followed by 80% stenosis at the level of the first septal perfect binder setter with a 50% proximal first diagonal narrowing followed by widely patent first diagonal stent B 30% narrowing the proximal portion of the nondominant circumflex C 40% proximal and distal narrowings of the dominant right coronary artery 2. Normal left-sided hemodynamic study 3. Successful PCI with deployment of drug-eluting stent at the site of 80% proximal LAD stenosis with 10% residual narrowing and DE-3 flow to the distal vessel Recommendations Cardiac Risk Reduction Program Medications Administered Aspirin (any) [place] [address] CARDIAC CATH REPORT Name: RENETTA PÉREZ Room: [address] M.R.#: [id number] Admission: 11/14/20 Attend Phys: Choco Dyson MD, Discharge: 11/15/20 Date of : 63 Report #: [id number] Diagnostic Cath Approved by: Choco Dyson MD Date/Time: 11/16/2020 14:34:04 <ELECTRONICALLY SIGNED> By: Choco Dyson MD, [facility] 11/16/20 1434 1434 1434Choco Dyson MD, [facility] /INF
== END 2020-11-15 13:00 | disposition home or self-care (01) ==
LOC: M.CL 08:49 → M.2W 11:40 → M.TBA-CV 11:40 → M.2W 14:21
PROVIDERS: ADMIT Internal Medicine; ATTEND Internal Medicine
DX: I25.110 Atherosclerotic heart disease of native coronary artery with unstable angina pectoris (principal); I25.2 Old myocardial infarction; I10 Essential (primary) hypertension; E66.09 Other obesity due to excess calories; E78.5 Hyperlipidemia, unspecified; F17.200 Nicotine dependence, unspecified, uncomplicated; Z68.33 Body mass index [BMI] 33.0-33.9, adult; Z79.82 Long term (current) use of aspirin; Z79.899 Other long term (current) drug therapy

== ENCOUNTER 2021-03-13 08:47 | Observation (INO) | payer MEDICAID ==
[2021-03-13] VITALS (13 sets, daily range): BP systolic 114–157; BP diastolic 66–92
[~2021-03-13] VITALS: Ht 182.9 cm; Wt 115.7 kg
--- NOTE | ~2021-03-13 | H ---
[address] [address] HISTORY AND PHYSICAL Name: RENETTA PÉREZ JR Room: [address] Anatoly Anderson#: [id number] Admission: 03/13/21 Attend Phys: Choco Dyson MD, Discharge: 03/14/21 Date of : 63 Report #: [id number] THIS REPORT FOR: cc: Choco Paul John E. DO [facility],Medical Records Staff ~ Please refer to the History and Physical performed in the physician's office. By: 1012Medical Records Staff BRIAN /ALYCE
[~2021-03-13 08:47] MED LIST changes: +ASA81BEC PO; +LIPITOR40 MG PO; +TOPROL XL25 MG PO
[2021-03-13 09:12] LABS: HEMATOCRIT 42.1 % (42.0-52.0); HEMOGLOBIN 14.4 gm/dL (14.0-18.0); MCH 29.3 pg (26.0-34.0); MCHC 34.3 g/dL (28.0-37.0); MCV 85.6 fL (80.0-100.0); MPV 7.4 fl. (7.2-11.1); RBC 4.91 mil/uL (4.50-6.00); RDW-CV 13.6 % (10.5-14.5); WBC 8.6 thou/uL (4.0-11.0)
[2021-03-13 09:29] LABS: ALBUMIN 3.6 g/dL (3.4-5.0); ALKALINE PHOSPHATASE 92 U/L (46-116); ANION GAP 9 mmol/L (7-16); BUN 10 mg/dL (7-18); CHLORIDE 103 mmol/L (98-107); CHOLESTEROL 144 mg/dL (<200); CO2 28 mmol/L (21-32); GLUCOSE 100 mg/dL (70-99); HDL CHOLESTEROL 43 mg/dL (>40); LDL CHOLESTEROL 70 mg/dL (<100); SERUM ASSESSMENT Clear; SGOT 19 U/L (15-37); SGPT 32 U/L (30-65); SODIUM 140 mmol/L (136-145); TC:HDL 3.3 Ratio (Not establshd); TOTAL BILIRUBIN 0.2 mg/dL (<0.1-1.0); TOTAL PROTEIN 8.1 g/dL (6.4-8.2); TRIGLYCERIDE 159 mg/dL (<150); VLDL 32 mg/dL (<40)
[2021-03-13 09:56] LABS: PROTIME 10.2 Seconds (9.20-11.50)
--- NOTE | 2021-03-13 13:23 | CARD ---
[address] [address] CARDIAC CATH REPORT Name: RENETTA PÉREZ Room: [address] Anatoly M.R.#: [id number] Admission: 03/13/21 Attend Phys: Choco Dyson MD, Discharge: Date of : 63 Report #: [id number] THIS REPORT FOR: cc: Choco Paul John E. DO Holkins, John M. MD [facility] ~ APPROVED REPORT Study performed: 03/13/2021 09:12:05 Patient Details Patient Status: Out-Patient Room #: The patient is a 55 year-old male Event Personnel Choco Dyson Commodities Requirements Analyst, Hortencia Hicks RN Senior Category Manager, Barbara Potter RTR Scrub, Judy Jennings RTR Monitor Procedures Performed Art Access - R femoral artery , Left Heart Cath w/or w/o Coronaries LHC , BRANDEE Place w/wo Plasty Single CIRC , Hemostasis w/ Angioseal Indication Unstable angina Risk Factors Hypercholesterolemia, Hypertension Previous Procedures/Diagnoses Previous PCI Admission/Lab Medications/Medications given during procedure Angiomax IV 17 ml, Angiomax Drip IV 40.05 ml per hr, Nitroglycerin IC 150 mcg, Nitroglycerin IC 150 mcg, Effient PO 30 mg, Aspirin PO 162 mg Procedure Narrative The patient was brought electively to the Cardiac Catheterization Laboratory and was prepped and draped in a sterile manner. The right femoral was infiltrated with 2% Lidocaine subcutaneous anesthesia. IV conscious sedation was used throughout procedure with appropriate monitoring and was performed in the [place] [address] CARDIAC CATH REPORT Name: RENETTA PÉREZ JR Room: [address] Monica#: [id number] Admission: 03/13/21 Attend Phys: Choco Dyson MD, Discharge: Date of : 63 Report #: [id number] who was an independent trained observer other than the physician performing the procedure. A 6F Ult[place] sheath was inserted into the right femoral artery. Coronary angiography was performed using coronary diagnostic catheters. The right coronary system was accessed and visualized with a 6F JR4 catheter. The left coronary system was accessed and visualized with a 6F JL4 catheter. The left ventricle was accessed and visualized with a 6F Pigtail catheter. Left ventricular/Aortic Valve gradient assessed via catheter pullback. Left ventriculogram was performed in SANDOVAL projection. Pre-demployment femoral angiogram was performed . Closure device was deployed with a 6 Fr Angioseal STS. The patient tolerated the procedure well and there were no complications associated with the procedure. There was no hematoma. Intraoperative Conscious Sedation Sedation start time: 09:58 Case end Time: 11:17 Fentanyl 50 mcg Versed 2 mg Fluoro Time: 25.3 minutes Dose: DAP 608467 cGycm2 2660 mGy Contrast Type and Amount: Omnipaque 275 ml Diagnostic Cath Left Main 0% narrowing LAD 30% ostial proximal LAD narrowing with 30% proximal first diagonal narrowing with widely patent proximal LAD and first diagonal stents Circumflex 30% proximal 80% mid and 95% distal circumflex gnosis with DE I flow to the distal vessel Right Coronary Modest sized vessel with 40% proximal and distal narrowing Left Ventriculography The left ventricle is normal in size with normal contractility. The left ventricular ejection fraction is estimated to be 60%. Left ventricular wall motion abnormalities are present. There is no mitral insufficiency. Mild inferoapical hypokinesis is noted Hemodynamics The aortic pressure is 135/78 mmHg with a mean of 101 mmHg. The left ventricular pressure is 135/6 mmHg with a mean of mmHg. The left ventricular end diastolic pressure is 14 mmHg. There was no gradient across the aortic [place] [address] CARDIAC CATH REPORT Name: RENETTA PÉREZ JR Room: [address]#: [id number] Admission: 03/13/21 Attend Phys: Choco Dyson MD, Discharge: Date of : 63 Report #: [id number] PCI Technique Lesion Anticoagulation was achieved with Angiomax. Patient was preloaded with Angiomax IV 17 ml. Percutaneous coronary intervention was performed on the distal circumflex artery segment. The lesion stenosis prior to intervention was 95% with DE 1 flow. A 6FR XB 3.5 100CM Guide Catheter was used to engage the left main ostium. A ProwaterFlex 180CM Interventional Guidewire was used to cross the lesion. BALLOON DILATION A Balloon catheter Mini Trek RX 2.0 X 12 was inserted and inflated up to 5.00atm for 15seconds. Additional Inflation: 10.00atm for 9seconds. Additional Inflation: 14.00atm for 10seconds. Additional inflations: 15 chava for 8 seconds; 12 chava for10 seconds; and 16 chava for 11 seconds. A balloon catheter TREK 2.25 x 8 was inserted and inflated up to 6 chava for 9 seconds; 10 chava for 12 seconds; 10 chava for 9 seconds; 12 chava for 9 seconds; and 17 chava for 11 seconds. STENT DEPLOYMENT A drug-eluting stent [place] RX Stent 2.0X15mm was inserted and inflated up to 12.00atm for 6seconds. Additional Inflation: 14.00atm for 10seconds. Additional Inflation: 14.00atm for 9seconds. Additional inflations: 15 chava for 9 seconds; and 15 chava for 7 seconds. A 2nd drug-eluting stent Kevin RX stent 2.0 x 8 was inserted and inflated up to 8 chava for 9 seconds; 12 chava for 9 seconds; and 14 chava for 8 seconds. Final angiography reveals 10 % stenosis with DE 3 flow. COMMENTS A BMW 190cm Interventional guide wire was used as a Russ wire. The procedure was technically complex by virtue of severe distal calcification and tortuosity requiring complex wiring and use of a russ wire to achieve distal dilatations and ultimately distal stent deployment. PCI Technique Lesion 2 Percutaneous Coronary Intervention was performed on the Mid circumflex. Percutaneous coronary intervention was performed on the Mid circumflex. The lesion stenosis prior to intervention was 80% with DE 3 flow. A 6 [place] XB 3.5 Guide Catheter was used to engage the Left ostium. A 014 Prowater flex Interventional Guidewire was used to cross the lesion. [address] [address] CARDIAC CATH REPORT Name: RENETTA PÉREZ Room: [address] Anatoly Anderson#: [id number] Admission: 03/13/21 Attend Phys: Choco Dyson MD, Discharge: Date of : 63 Report #: [id number] Balloon Dilation A Balloon catheter Mini Trek RX 2.0 X 12 was inserted and inflated up to 17atm for 10seconds. Stent Deployment A drug-eluting stent Kevin RX Stent 2.5X15mm was inserted and inflated up to 14atm for 10seconds. Final angiography reveals 10 % stenosis with DE 3 flow. Conclusion 1. Significant multivessel coronary artery disease characterized by the following: A 30% proximal LAD and proximal first diagonal narrowing with widely patent proximal LAD and first diagonal stents B nondominant circumflex with 30% proximal narrowing 80% mid vessel stenosis and 95% distal narrowing with DE I flow to the distal circulation C moderate size right coronary artery with 40% proximal and distal narrowings 2. Normal global left ventricular systolic function, estimate ejection fraction being 60% with mild inferoapical hypokinesis 3. Minimal elevation of left ventricular end diastolic pressure at rest 4. Successful PCI with deployment of drug-eluting stents at the sites of 80% mid and 95% distal circumflex stenosis with 10% residual narrowings at both sites following stent deployment and DE-3 flow to the distal vessel Recommendations Cardiac Risk Reduction Program Aggressive Medical Therapy Medications Administered Aspirin (any) Prasugrel [address] [address] CARDIAC CATH REPORT Name: RENETTA PÉREZ Room: [facility] Anatoly Anderson#: [id number] Admission: 03/13/21 Attend Phys: Choco Dyson MD, Discharge: Date of : 63 Report #: [id number] Diagnostic Cath Approved by: Choco Dyson MD Date/Time: 03/13/2021 13:20:48 <ELECTRONICALLY SIGNED> By: Choco Dyson MD, [facility] 03/13/21 1323 1323 1323Choco Dyson MD, FAC /INF
--- NOTE | 2021-03-13 14:02 | EKG ---
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: ADRI : 1965 Requested By: Choco Dyson Order Number: [id number] Harry MD: Choco Dyson Measurements Intervals [place] Rate: 52 P: -12 [place]: 131 QRS: 1 QRSD: 98 T: 5 QT: 445 QTc: 414 Interpretive Statements Sinus rhythm Nondiagnostic inferior Q's Compared to ECG 11/15/2020 09:51:17 Inferior Q is noted Electronically Signed On 03-13-2021 14:01:49 CDT by Choco Dyson [email or web address] <ELECTRONICALLY SIGNED> By: Choco Dyson MD, [facility] 03/13/21 1401 0944 0944 Choco Dyson MD, [facility] /EPI
--- NOTE | 2021-03-13 14:02 | EKG ---
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
--- NOTE | 2021-03-13 14:55 | NUR ---
RECIEVED REPORT FROM RN IN CATH LAJB PPOST PROCEDURE- PT REPORTED TO HAVE RECIEVED HEART CATH VIA RIGHT GROIN WITH 3 STENTS PLACED TO CIRC- PT ARRIVED TO ROOM 206 VIA BED- DIALYSIS EQUIPMENT TECHNICIAN PLACED ORDERED, TRACING SR- PT A&O X4- CONT OF B/B, 550CC OUTPUT NOTED VIA URINAL- BED REST IN PLACE INDICATED WITH INSTRUCTIONS GIVEN FOR IMMOBILIZATION JASON RIGHT LE- RIGHT GROIN SIGHT C/D/I WITH DRESSING NOTED AND NO HEMATOMA- VSS, AND IN PLACE PER PROTOCOL INDICATED- PT RATES PAIN TO BACK 10/10, PRN HYDROCODONE GIVEN AT 1342M PT REPORTS MEDICATION TO BE PARTIALLY EFFECTIVE- ABD SOFT/ROUND/NON-TENDER, BS X4 QUADS- LAST BM REPORTED THIS AM- IV NOTED TO LEFT AC INTACT, IVF INFUSSING PRESCRIBED- PT DENIES ANY OPEN WOUNDS/SOARS- CALL LIGHT AND PERSONAL BELONGINGS WITH IN REACH- ALL NEEDS MET AT THIS TIME
[2021-03-14 03:48] VITALS: BP 137/77
--- NOTE | 2021-03-14 05:05 | NUR ---
ASSUMED PT CARE AT 1915. NURSING ASSESSMENT COMPLETED, PLUMBING DESIGNER IN PLACE, TRACING SR/SB. C/O BACK PAIN AT START OF SHIFT. DR. JOVEL PAGED AND NEW ORDERS RECEIVED. HEATING PAD PROVIDED TO ASSIST WITH PAIN MANAGEMENT. HOURLY ROUNDING COMPLETED. CALL LIGHT WITHIN REACH.
[2021-03-14 05:18] LABS: HEMATOCRIT 38.9 % (42.0-52.0); MCH 28.7 pg (26.0-34.0); MCHC 33.5 g/dL (28.0-37.0); MCV 85.6 fL (80.0-100.0); MPV 7.7 fl. (7.2-11.1); RBC 4.55 mil/uL (4.50-6.00); RDW-CV 13.8 % (10.5-14.5); WBC 8.1 thou/uL (4.0-11.0)
[2021-03-14 05:37] LABS: ALBUMIN 3.1 g/dL (3.4-5.0); CALCIUM 9.3 mg/dL (8.5-10.1); POTASSIUM 4.2 mmol/L (3.5-5.1); TOTAL BILIRUBIN 0.1 mg/dL (<0.1-1.0); TOTAL PROTEIN 7.1 g/dL (6.4-8.2); TROPONIN-I LEVEL 0.08 ng/mL (<0.06)
[2021-03-14 08:00] VITALS: BP 151/77
[2021-03-14 10:17] VITALS: BP 151/77
--- NOTE | 2021-03-14 10:35 | NUR ---
PT DISCHARGED HOME WITH ALL BELONGINGS ACCOMPANIED BY HIS . SALINE LOCK REMOVED HUB INTACT. PT STATED PAIN IS A LOT BETTER SINCE PAIN PILL GIVEN FOR HIS CHRONIC BACK PAIN, SECONDARY TO RADIATION THERAPY TO PSA CANCER. PT DISCHARGED HOME WITH ALL BELONGINGS.
--- NOTE | 2021-03-14 12:45 | D ---
[address] [address] DISCHARGE SUMMARY Name: RENETTA PÉREZ Room: [address] Anatoly M.Aarti#: [id number] Admission: 03/13/21 Attend Phys: Choco Dyson MD, Discharge: 03/14/21 Date of : 63 Report #: [id number] THIS REPORT FOR: cc: Choco Paul John E. DO Holkins, John M. MD [facility] ~ DOC #: [id number] cc: Dejuan Morelos MD [facility] Choco Dyson MD [facility] DATE OF DISCHARGE: 03/14/2021 LOCATION: The patient discharged from [facility]. FINAL DISCHARGE DIAGNOSES: 1. Unstable angina. 2. Coronary artery disease. 3. Hypertension. 4. Hyperlipidemia. 5. Exogenous obesity. 6. Status post PCIs, most recently to the circumflex on 03/13/2021. PROCEDURE: 03/13/2001 -- left heart catheterization, left ventriculography, selective coronary arteriography, and percutaneous coronary eventual deployment of sequential drug-eluting stents at the site of 80% mid and 95% distal circumflex stenosis. The patient is a pleasant 55-year-old male with complex coronary artery disease and underlying hypertension and hyperlipidemia. In October, he underwent a PCI to the circumflex with subsequent PCI to the LAD. Recently, he has noted recrudescence of chest pain, typical of his angina with an achy sensation in his chest, responsive to nitrates. The pattern has been one of increasing frequency and severity consistent with unstable angina. In this context, Dr. Morelos increased his metoprolol, increased his aspirin and recommended recatheterization. This was undertaken on 03/13/2021. That study revealed significant coronary artery disease, characterized by the following: A. A 30% proximal LAD and first diagonal narrowing with widely patent proximal LAD and first diagonal stents. B. Prominent though nondominant circumflex with 30% proximal, 80% mid and 95% distal narrowing with DE-1 flow to the distal vessel. C. Modest sized right coronary artery with 40% [place] [address] DISCHARGE SUMMARY Name: RENETTA PÉREZ JR Room: [address] Anatoly Anderson#: [id number] Admission: 03/13/21 Attend Phys: Choco Dyson MD, Discharge: 03/14/21 Date of : 63 Report #: [id number] Given this data, I elected to perform a PCI, deploying one [place] drug-eluting stent in the mid circumflex and two in the distal circumflex with 10% residual narrowing following stent deployment and DE-3 flow to the distal vessel. Troponin nafisa inconsequentially to 0.08. Additional lab on 03/14 revealed sodium 140, potassium 4.2, BUN 15, creatinine 1.0, glucose 96. Hemoglobin 13.0, white blood cell count 8100 with 245,000 platelets. DISCHARGE MEDICATIONS: The patient was discharged home on the following medications: Lisinopril 20 mg daily, hydrocodone/acetaminophen or [place] 1 tablet every 8 hours p.r.n. back pain, prasugrel or Effient 10 mg daily with 30 mg periprocedural dose having been given, Zoladex implant 10.8 subcutaneously as previously indicated, atorvastatin 40 mg daily, metoprolol succinate 25 mg b.i.d., enteric-coated aspirin 81 mg b.i.d. The patient is scheduled to return to see Dr. Morelos on 04/05/2021 at 0900 at [facility]. Therefore, the patient is discharged home in stable condition on the aforementioned medications with followup as described above. Choco Dyson MD [facility]ANA/[facility]LL <ELECTRONICALLY SIGNED> By: Choco Dyson MD, [facility] 03/14/21 1245 0841 0926Choco Dyson MD, [facility] /demetrius
--- NOTE | 2021-03-14 14:07 | EKG ---
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
== END 2021-03-14 10:45 | disposition home or self-care (01) ==
LOC: M.CL 08:47 → M.TBA-CV 10:41 → M.2W 13:17
PROVIDERS: ADMIT Internal Medicine; ATTEND Internal Medicine
DX: I25.110 Atherosclerotic heart disease of native coronary artery with unstable angina pectoris (principal); Z20.822 Contact with and (suspected) exposure to COVID-19; I10 Essential (primary) hypertension; E78.5 Hyperlipidemia, unspecified; E66.01 Morbid (severe) obesity due to excess calories; Z68.34 Body mass index [BMI] 34.0-34.9, adult; Z79.82 Long term (current) use of aspirin; Z79.899 Other long term (current) drug therapy